=== PATIENT | male | born 1950 | race Caucasian/White ===

== ENCOUNTER 2022-09-05 08:13 | Inpatient (IN) | payer MEDICARE, OTHER ==
[2022-09-05 08:54] LABS: ESTIMATED GFR 30 mL/min (>60)
[2022-09-05] MEDS: Sodium Chloride 0.9% 1,000 ML IV SCH ×2 (10:30→16:26)
[2022-09-05] MEDS ORDERED: Acetaminophen 325 MG Tab PO ONE ×2 (11:01→20:19)
[2022-09-05] MEDS ORDERED: cefTRIAXone 1 GM Vial IVPUSH ONE (12:11)
[2022-09-05] MEDS ORDERED: cefTRIAXone 1 GM Vial ONE (12:23)
[2022-09-05] MEDS ORDERED: Sodium Chloride 0.9% 1,000 ML IV ONE (13:47)
[2022-09-05] MEDS ORDERED: Melatonin 10 MG Cap PO SCH (14:00)
[2022-09-05] MEDS: metroNIDAZOLE 500 MG Tab PO SCH ×2 (14:00→21:59)
[2022-09-05] MEDS ORDERED: Lactobacillus Acidophilus/Lactobacillus Sporogenes (Probiotic) Tab ONE (14:27)
[2022-09-05] MEDS ORDERED: Multivitamins with Iron/Calcium/Folic Acid/Minerals Tab ONE (14:27)
[2022-09-05] MEDS ORDERED: Cefepime 1 GM in Sodium Chloride 0.9% 50 ML IV ONE (14:45)
[2022-09-05] MEDS: Lactobacillus Acidophilus/Lactobacillus Sporogenes (Probiotic) Tab PO SCH (14:47)
[2022-09-05] MEDS: Multivitamins with Iron/Calcium/Folic Acid/Minerals Tab PO SCH (14:47)
[2022-09-05] MEDS ORDERED: Enoxaparin 30 MG/0.3 ML Syringe SUBCUT ONE (14:56)
[2022-09-05] MEDS: Acetaminophen 325 MG Tab PO PRN ×2 (16:26→20:29)
[2022-09-05] MEDS: Melatonin 10 MG Cap PO SCH (20:29)
[2022-09-06] MEDS: Sodium Chloride 0.9% 1,000 ML IV SCH ×3 (02:30→23:26)
[2022-09-06] MEDS: metroNIDAZOLE 500 MG Tab PO SCH ×3 (06:23→21:12)
[2022-09-06] MEDS ORDERED: [UNRECOGNIZED DRUG - REMARK] SCH (08:00)
[2022-09-06] MEDS ORDERED: Enoxaparin 40 MG/0.4 ML Syringe SUBCUT SCH (08:00)
[2022-09-06] MEDS: Multivitamins with Iron/Calcium/Folic Acid/Minerals Tab PO SCH (08:27)
[2022-09-06] MEDS: Lactobacillus Acidophilus/Lactobacillus Sporogenes (Probiotic) Tab PO SCH (08:27)
[2022-09-06 08:43] LABS: ESTIMATED GFR 35 mL/min (>60)
[2022-09-06] MEDS ORDERED: Loperamide 2 MG Cap PO ONE (14:46)
[2022-09-06] MEDS: Cefepime 1 GM in Sodium Chloride 0.9% 50 ML IV SCH (15:01)
[2022-09-06] MEDS ORDERED: Enoxaparin 30 MG/0.3 ML Syringe SUBCUT SCH (16:00)
[2022-09-06] MEDS ORDERED: metroNIDAZOLE 500 MG Tab ONE (19:58)
[2022-09-06] MEDS: Melatonin 10 MG Cap PO SCH (20:10)
[2022-09-07] MEDS: metroNIDAZOLE 500 MG Tab PO SCH ×3 (06:24→22:37)
[2022-09-07] MEDS ORDERED: Enoxaparin 30 MG/0.3 ML Syringe SUBCUT SCH (08:00)
[2022-09-07] MEDS: Multivitamins with Iron/Calcium/Folic Acid/Minerals Tab PO SCH (08:03)
[2022-09-07] MEDS: Lactobacillus Acidophilus/Lactobacillus Sporogenes (Probiotic) Tab PO SCH (08:03)
[2022-09-07] MEDS: Sodium Chloride 0.9% 1,000 ML IV SCH (08:05)
[2022-09-07 08:25] LABS: ESTIMATED GFR 41 mL/min (>60)
[2022-09-07] MEDS: Acetaminophen 325 MG Tab PO PRN (11:36)
[2022-09-07] MEDS: Cefepime 1 GM in Sodium Chloride 0.9% 50 ML IV SCH (16:40)
[2022-09-07] MEDS: Melatonin 10 MG Cap PO SCH (19:35)
[2022-09-08] MEDS: Multivitamins with Iron/Calcium/Folic Acid/Minerals Tab PO SCH (07:27)
[2022-09-08] MEDS: Lactobacillus Acidophilus/Lactobacillus Sporogenes (Probiotic) Tab PO SCH (07:27)
[2022-09-08] MEDS: metroNIDAZOLE 500 MG Tab PO SCH (07:27)
[2022-09-08 08:45] LABS: ESTIMATED GFR 43 mL/min (>60)
== END 2022-09-08 11:15 | disposition home or self-care (01) | DRG 690 ==
LOC: LB.ED 08:13 → LB.MS 13:10
PROVIDERS: ADMIT Nurse Practitioner Family; ATTEND Nurse Practitioner Family
DX: N39.0 Urinary tract infection, site not specified (principal); D64.9 Anemia, unspecified; R50.9 Fever, unspecified; Z86.16 Personal history of COVID-19; C91.10 Chronic lymphocytic leukemia of B-cell type not having achieved remission; Z91.030 Bee allergy status; W18.11XA Fall from or off toilet without subsequent striking against object, initial encounter; Z88.1 Allergy status to other antibiotic agents; Z85.6 Personal history of leukemia; Z85.51 Personal history of malignant neoplasm of bladder; N13.30 Unspecified hydronephrosis; R31.9 Hematuria, unspecified; R79.89 Other specified abnormal findings of blood chemistry
CPT/HCPCS: 36415; 74176; 80053; 81001; 83605; 83735; 85025; 87040 ×2; 87086; A9270; J0696; J7030; 82270; 87493; 96374; 99222; 99232; 99238; 99284-25; J0692; J1650; J3490